=== PATIENT | male | born 1985 | race Two or more races ===

== ENCOUNTER 2024-10-02 15:13 | Emergency (ER) | payer MEDICAID ==
[~2024-10-02] VITALS: Ht 177.8 cm; Wt 90.7 kg
[2024-10-02] MEDS ORDERED: IBUP-1490 PO (16:05)
[2024-10-02 16:30] VITALS: BP 130/70; TEMP 98.5; O2SAT 99
== END 2024-10-02 16:31 | disposition home or self-care (01) ==
LOC: ER 15:17
DX: M79.644 Pain in right finger(s) (principal)
CPT/HCPCS: 73130-TC